=== PATIENT | female | born 1965 | race Caucasian/White ===

== ENCOUNTER 2020-01-15 04:54 | Emergency (ER) | payer SELFPAY ==
[~2020-01-15] VITALS: Ht 127 cm; Wt 65.4 kg
[2020-01-15] MEDS ORDERED: KETOROLAC 15 MG/ML VIAL. IVP ONE (05:15)
[2020-01-15] MEDS ORDERED: METOCLOPRAMIDE HCL 10 MG/2 ML VIAL. IVP ONE (05:15)
[2020-01-15] MEDS ORDERED: IV NORMAL SALINE 1,000ML 1,000 ML IV ONE (05:15)
--- NOTE | 2020-01-15 05:27 | PHYS DOC ---
Past History Past Medical History: Kidney Stones Past Surgical History: No Surgical History Smoking: Non-smoker Alcohol Use: None Drug Use: None General Adult EDM: Chief Complaint: FLANK PAIN HPI: HPI: 54-year-old female presents with report of right flank pain that started at 2300 last night. Reports some associated nausea. Denies trauma. Denies hematuria. Denies fever or chills. Patient reports symptoms similar to prior episodes of kidney stones. Patient reports has been able to pass her kidney stones without difficulty in the past. Denies rash. Denies trauma. Review of Systems: Review of Systems: Constitutional: Denies fever or chills Eyes: Denies redness or eye pain HENT: Denies nasal congestion or sore throat Respiratory: Denies cough or shortness of breath Cardiovascular: Denies chest pain or palpitations GI: Reports abdominal pain, nausea, and vomiting : Denies dysuria or hematuria Musculoskeletal: Reports right-sided flank pain; denies joint pain Integument: Denies rash or skin lesions Neurologic: Denies headache, focal weakness or sensory changes Complete systems were reviewed and found to be within normal limits, except as documented in this note. Current Medications: Current Meds: Current Medications Medications (Trade) Dose Ordered Sig/Naz Start Time Stop Time Status Last Admin Dose Admin Ketorolac Tromethamine (Toradol 15mg Vial) 15 mg 1X ONCE 01/15/20 05:15 01/15/20 05:16 UNV Metoclopramide HCl (Reglan Vial) 10 mg 1X ONCE 01/15/20 05:15 01/15/20 05:16 UNV Sodium Chloride 1,000 ml @ 1,000 mls/hr 1X ONCE 01/15/20 05:15 01/15/20 06:14 UNV Allergies: Allergies: Allergies Coded Allergies Type Severity Reaction Last Updated Verified Penicillins Allergy Unknown 01/15/20 Yes Sulfa (Sulfonamide Antibiotics) Allergy Unknown 01/15/20 Yes Physical Exam: PE: Constitutional: Well developed, well nourished, no acute distress, non-toxic appearance HENT: Normocephalic, atraumatic Eyes: Conjunctiva normal, no discharge Neck: Normal range of motion, supple Lungs & Thorax: No respiratory distress, equal chest rise and fall Abdomen: Soft, no tenderness, no guarding/rebound tenderness/distention Skin: Warm, dry, no erythema, no rash Back: No tenderness, right CVA tenderness Extremities: No tenderness, ROM intact, no edema Neurologic: Alert and oriented X 3, no focal deficits noted Psychologic: Affect normal, judgment normal Current Patient Data: Vital Signs: Vital Signs Date Time Temp Pulse Resp B/P (MAP) Pulse Ox O2 Delivery O2 Flow Rate FiO2 01/15/20 05:00 98.4 76 18 156/99 (118) 96 Room Air EKG: EKG: [] Radiology/Procedures: Radiology/Procedures: PROCEDURE: CT ABDOMEN PELVIS WO CONTRAST CT ABDOMEN PELVIS WO CONTRAST INDICATION: Reason: Severe right flank pain. Hx: Kidney stones / Spl. Instructions: / History: EXAM: Noncontrast CT of the abdomen and pelvis. Coronal and sagittal reformatted images were performed. PQRS compliance statement: One or more of the following individualized dose reduction techniques were utilized for this examination: 1. Automated exposure control 2. Adjustment of the mA and/or kV according to patient size 3. Use of iterative reconstruction technique COMPARISON: None FINDINGS: No free air, free fluid, or fluid collection. Lower chest: The visualized lower lungs are aerated. No pleural or pericardial effusion. ABDOMEN: Liver: The noncontrast liver is homogeneous in attenuation. Gallbladder and biliary: Cholelithiasis. Normal caliber bile ducts. Spleen: Normal spleen. Pancreas: The noncontrast pancreas is homogeneous in attenuation without peripancreatic inflammatory changes. Adrenal glands: Normal adrenal glands. Kidneys and ureters: Mild right hydronephrosis and asymmetric perinephric stranding with a 3 mm calculus at the ureteropelvic junction GI tract: The stomach is decompressed and poorly evaluated. Normal caliber small bowel and colon. Normal appendix. Vascular structures: Normal caliber abdominal aorta. Lymph nodes: No lymphadenopathy in the abdomen or pelvis. PELVIS: Genitourinary system: Urinary bladder is decompressed. Uterus is present. SKELETAL STRUCTURES AND SOFT TISSUES: Degenerative changes of the spine IMPRESSION: Mild right hydronephrosis with a 3 mm calculus at the ureteropelvic junction. Electronically signed by: Jonathan Gutierrez MD (01/15/2020 5:54 AM) [id number] Course & Med Decision Making: Course & Med Decision Making Pertinent Labs and Imaging studies reviewed. (See chart for details) Patient presents with report of right flank pain that started last night. Reports associated nausea. Reports history of kidney stones and reports symptoms similar to prior. Labs obtained and partially pending. WBC elevated. Heme concentrated. CT abdomen/pelvis with obstructing 3mm ureteral calculi. Flomax given. Symptomatic treatment provided. IV fluid hydration given. 0600-signout given to Dr. Hendricks for further evaluation and final disposition. Discussed current findings and plan with patient, who acknowledges understanding and agreement. Frank Disclaimer: Frank Disclaimer: This electronic medical record was generated, in whole or in part, using a voice recognition dictation system. Departure Departure: Impression: Primary Impression: Kidney stone Disposition: HOME/RESIDENCE PRIOR TO ADM Condition: STABLE Referrals: BRAXTON ROSARIO MD (PCP) Patient Instructions: Diet for Kidney Stones, Kidney Stones, Oeeh-ij-Sssz Scripts Hydrocodone Bit/Acetaminophen (NORCO 5-325 TABLET) 1 Each Tablet 0.5-1 TAB PO PRN Q6HRS PRN for PAIN, #10 TAB 0 Refills Prov: JEREMÍAS TRAN DO 01/15/20 Tamsulosin Hcl (FLOMAX) 0.4 Mg Cap.er.24h 1 CAP PO DAILY for Kidney stone, #7 CAP Prov: JEREMÍAS TRAN DO 01/15/20 Ondansetron (ONDANSETRON ODT) 4 Mg Tab.rapdis 1 TAB PO PRN Q6-8HRS PRN for NAUSEA, #16 TAB Prov: JEREMÍAS TRAN DO 01/15/20 Justification of Admission: Justification of Admission: Justification of Admission Dx: N/A JEREMÍAS TRAN DO Jan 15, 2020 05:27
[2020-01-15 05:50] LABS: BASO # 0.2 x10^3/uL (0.0-0.2); BASO % 1 % (0-3); EOS % 0 % (0-3); HEMATOCRIT 51.5 % (36.0-47.0); HEMOGLOBIN 17.6 g/dL (12.0-15.5); LYMPH % 5 % (24-48); MEAN CORPUSCULAR HEMOGLOBIN 32 pg (25-35); MEAN CORPUSCULAR HGB CONC 34 g/dL (31-37); MEAN CORPUSCULAR VOLUME 94 fL (79-100); MONO # 0.7 x10^3/uL (0.0-1.1); MONO % 3 % (0-9); NEUT # 17.3 x10^3uL (1.8-7.7); NEUT % 90 % (31-73); PLATELET COUNT 252 x10^3/uL (140-400); RED BLOOD COUNT 5.48 x10^6/uL (3.50-5.40); RED CELL DISTRIBUTION WIDTH 12.6 % (11.5-14.5); WHITE BLOOD COUNT 19.1 x10^3/uL (4.0-11.0)
--- NOTE | 2020-01-15 05:57 | RAD ---
CT ABDOMEN PELVIS WO CONTRAST INDICATION: Reason: Severe right flank pain. Hx: Kidney stones / Spl. Instructions: / History: EXAM: Noncontrast CT of the abdomen and pelvis. Coronal and sagittal reformatted images were performed. PQRS compliance statement: One or more of the following individualized dose reduction techniques were utilized for this examination: 1. Automated exposure control 2. Adjustment of the mA and/or kV according to patient size 3. Use of iterative reconstruction technique COMPARISON: None FINDINGS: No free air, free fluid, or fluid collection. Lower chest: The visualized lower lungs are aerated. No pleural or pericardial effusion. ABDOMEN: Liver: The noncontrast liver is homogeneous in attenuation. Gallbladder and biliary: Cholelithiasis. Normal caliber bile ducts. Spleen: Normal spleen. Pancreas: The noncontrast pancreas is homogeneous in attenuation without peripancreatic inflammatory changes. Adrenal glands: Normal adrenal glands. Kidneys and ureters: Mild right hydronephrosis and asymmetric perinephric stranding with a 3 mm calculus at the ureteropelvic junction GI tract: The stomach is decompressed and poorly evaluated. Normal caliber small bowel and colon. Normal appendix. Vascular structures: Normal caliber abdominal aorta. Lymph nodes: No lymphadenopathy in the abdomen or pelvis. PELVIS: Genitourinary system: Urinary bladder is decompressed. Uterus is present. SKELETAL STRUCTURES AND SOFT TISSUES: Degenerative changes of the spine IMPRESSION: Mild right hydronephrosis with a 3 mm calculus at the ureteropelvic junction. Electronically signed by: Jonathan Gutierrez MD (01/15/2020 5:54 AM) [id number]
[2020-01-15 05:58] LABS: BACTERIA,URINE FEW /HPF (0-FEW); BILIRUBIN,URINE NEG (NEG); CLARITY,URINE HAZY; COLOR,URINE YELLOW; GLUCOSE,URINE >=1000 mg/dL (NEG); NITRITE,URINE NEG (NEG); RBC,URINE >40 /HPF (0-2); SQUAMOUS EPITHELIAL CELL,UR FEW /LPF; UROBILINOGEN,URINE 0.2 mg/dL (0.2 mg/dL); WBC,URINE OCC /HPF (0-4)
[2020-01-15 05:59] LABS: GFR 57.8; POTASSIUM 3.8 mmol/L (3.5-5.1)
[2020-01-15 06:02] LABS: % BANDS 5 % (0-9); % LYMPHS 9 % (24-48); % MONOS 4 % (0-10); % SEGS 82 % (35-66); PLT ESTIMATE ADEQUATE (ADEQUATE)
[2020-01-15 06:05] LABS: ALBUMIN 3.6 g/dL (3.4-5.0); MAGNESIUM 1.8 mg/dL (1.8-2.4); TOTAL BILIRUBIN 0.6 mg/dL (0.2-1.0); TOTAL PROTEIN 7.2 g/dL (6.4-8.2)
[2020-01-15] MEDS ORDERED: TAMS0.4C97 PO (06:14)
[2020-01-15] MEDS ORDERED: HYDR-3165 PO (06:14)
[2020-01-15] MEDS ORDERED: ONDA4TAB12 PO (06:14)
[2020-01-15] MEDS ORDERED: TAMSULOSIN 0.4 MG CAP.ER.24H. PO ONE (06:15)
[2020-01-15 06:20] VITALS: BP 129/77
== END 2020-01-15 06:25 | disposition home or self-care (01) ==
LOC: ER 04:54
DX: N13.2 Hydronephrosis with renal and ureteral calculous obstruction (principal); R11.2 Nausea with vomiting, unspecified; Z87.442 Personal history of urinary calculi; Z88.0 Allergy status to penicillin; Z88.2 Allergy status to sulfonamides
CPT/HCPCS: 36415; 74176; 80053; 81001; 83690; 83735; 85007; 85025; 96361; 96374; 96375; 99284; J1885; J2765; J7030; 99285-25

== ENCOUNTER 2020-06-09 20:41 | Emergency (ER) | payer OTHER ==
[~2020-06-09] VITALS: Ht 127 cm; Wt 63.9 kg
[~2020-06-09 20:41] MED LIST: HYDR-3165 PO; ONDA4TAB12 PO; TAMS0.4C97 PO
--- NOTE | 2020-06-09 20:43 | PHYS DOC ---
Past History Past Medical History: Kidney Stones, Ovarian Cyst Past Surgical History: No Surgical History Past Surgical History Laparoscopic surgeries Smoking: Non-smoker Alcohol Use: None Drug Use: None General Adult HPI: HPI: '..."I am hurting here on my Rt. flank....It like a kidney stone.. ..it radiates down to my groin.. I ve been vomiting.. ..I was exposed to my dad who has COVID..but I been self isolating since then.. it been 10 days.. I ve not had any COVID symptoms.. just the kidney stone like pain .. I ve had about 5 episodes of kidney stones... This is just like my other kidney stones...." Patient is a 55 year old female who presents with above hx and complaints right flank pain that radiates to her groin. Patient has had some nausea and vomiting.. Patient denies any trauma. Patient denies any history of bad food intake. Patient denies any travel. Was exposed to father who was diagnosed with Covid 10 days ago. Patient has been self isolating. Patient has not had any Covid symptoms. Patient has not had a flu vaccination this season. Patient has had recurrent kidney stones, at least 5 episodes which required medical evaluation. Patient also has had multiple laparoscopic surgeries for ovarian issues and endometriosis. Hx of colitis. Patient normally follows with Dr. Rosario. Review of Systems: Review of Systems: Constitutional: Denies fever or chills Eyes: Denies change in visual acuity HENT: Denies nasal congestion or sore throat Respiratory: Denies cough or shortness of breath Cardiovascular: Denies chest pain or edema GI: Complains of right flank abdominal pain, nausea, vomiting,. Denies bloody stools or diarrhea : Denies dysuria Musculoskeletal: Denies back pain or joint pain Integument: Denies rash Neurologic: Denies headache, focal weakness or sensory changes Endocrine: Denies polyuria or polydipsia Lymphatic: Denies swollen glands Psychiatric: Denies depression or anxiety Family History: Family History: Father recently diagnosed with Covid Current Medications: Current Meds: See nursing for home meds Allergies: Allergies: Allergies Coded Allergies Type Severity Reaction Last Updated Verified Penicillins Allergy Unknown 01/15/20 Yes Sulfa (Sulfonamide Antibiotics) Allergy Unknown 01/15/20 Yes Physical Exam: PE: Constitutional: In moderately acute distress, non-toxic appearance. [] HENT: Normocephalic, atraumatic, bilateral external ears normal, oropharynx dry , no oral exudates, nose normal. [] Eyes: PERRLA, EOMI, conjunctiva normal, no discharge. Glasses Neck: Normal range of motion, no tenderness, supple, no stridor. [] Cardiovascular:Heart rate regular rhythm, no murmur [] Lungs & Thorax: Bilateral breath sounds equal at apex and few bilateral basilar crackles on auscultation [] Abdomen: Bowel sounds decreased, soft, right flank tenderness, no masses, no pulsatile masses. Multiple surgery scars(laparoscopic evaluations and treatment of abdomen pain=-ovarian cyst etc. etc..) Obese. Skin: Warm, dry, no erythema, no rash. [] Back: No tenderness, right flank CVA tenderness. [] Extremities: No tenderness, no cyanosis, no clubbing, ROM intact, no edema. No psoas sign Neurologic: Alert and oriented X 3, normal motor function, normal sensory function, no focal deficits noted. [] Psychologic: Affect anxious, judgement normal, mood normal. [] EKG: EKG: [] Radiology/Procedures: Radiology/Procedures: [place] [address] IMAGING REPORT Signed PATIENT: YOSELIN BENITEZ ACCOUNT: [id number] : 1965 LOCATION: ER AGE: 55 SEX: F EXAM STATUS: REG ER ORD. PHYSICIAN: SHAYNA HIGH MD REASON: Renal stone hx, similar pain, on Rt. PROCEDURE: CT ABDOMEN PELVIS WO CONTRAST Exam: CT abdomen and pelvis without contrast INDICATION: Renal stone, similar pain on right TECHNIQUE: Sequential axial images through the abdomen and pelvis obtained without IV contrast. Sagittal and coronal reformatted images were reconstructed from the axial data and reviewed. Comparisons: None FINDINGS: Heart size is normal. No pericardial effusion. Linear bandlike opacity at lung bases bilaterally. No pleural effusion. Evaluation of solid organs is limited secondary to noncontrast technique. Liver, spleen, pancreas, gallbladder and adrenals are unremarkable. There is moderate right-sided hydronephrosis with a 9 mm calculus at the right uteropelvic junction. Additionally there is a nonobstructing renal calculus at the right renal pelvis and Several at the lower pole of the right kidney. Bladder is decompressed not well evaluated. Uterus is not enlarged. No abnormal adnexal mass. Submucosal fat deposition noted throughout the colon. Appendix is nonidentified. No free intra-abdominal air or fluid. No obstruction. Abdominal aorta has a normal course and caliber. No enlarged abdominal lymph nodes are identified. No suspicious osseous lesions or acute fractures. IMPRESSION: 1. A 9 mm calculus at the right ureteral pelvic junction with moderate right-sided hydronephrosis. 2. Several nonobstructing right renal calculi. 3. Diffuse of mucosal fat deposition throughout the colon, likely sequela of prior colitis. Exposure: One or more of the following in the visualized dose reduction techniques were utilized for this examination: 1. Automated exposure control 2. Adjustment of the MA and/or KV according to patient size 3. Use of iterative of reconstructive technique Electronically signed by: Mary Lima MD (06/09/2020 10:09 PM) [facility] DICTATED AND SIGNED BY: MARY LIMA MD DATE: 06/09/202208 CC: SHAYNA HIGH MD; BRAXTON ROSAIRO MD ~MTH0 0 [][address] [address] IMAGING REPORT Signed PATIENT: YOSELIN BENITEZ ACCOUNT: [id number] : 1965 LOCATION: ER AGE: 55 SEX: F EXAM STATUS: PRE ER ORD. PHYSICIAN: SHAYNA HIGH MD REASON: abd. pain, nausea, vomiting, sick , Exp. COVID 10 DAYS AGO PROCEDURE: ACUTE ABDOMEN SERIES Exam: Acute abdominal series INDICATION: Abdominal pain, nausea and vomiting TECHNIQUE: Frontal view of the chest with upright and supine views of the abdomen Comparisons: None FINDINGS: The cardiomediastinal silhouette and pulmonary vessels are within normal limits. Strandy opacities at dependent portion lungs likely representing atelectasis. No pleural effusion. Air and stool are noted throughout the colon to level the rectum in a nonobstructive bowel gas pattern. No suspicious masses or calcifications. Visualized osseous structures are unremarkable. IMPRESSION: 1. Bibasilar strandy opacities likely representing atelectasis. 2. Nonobstructive bowel gas pattern. Electronically signed by: Mary Lmia MD (06/09/2020 9:30 PM) [facility] DICTATED AND SIGNED BY: MARY LIMA MD DATE: 06/09/202129 CC: SHAYNA HIGH MD; BRAXTON ROSARIO MD ~MTH0 0 Heart Score: Risk Factors: Risk Factors: DM, Current or recent (<one month) smoker, HTN, HLP, family history of CAD, obesity. Risk Scores: Score 0 - 3: 2.5% MACE over next 6 weeks - Discharge Home Score 4 - 6: 20.3% MACE over next 6 weeks - Admit for Clinical Observation Score 7 - 10: 72.7% MACE over next 6 weeks - Early Invasive Strategies Course & Med Decision Making: Course & Med Decision Making Pertinent Labs and Imaging studies reviewed. (See chart for details) Patient push fluids. Tylenol and ibuprofen as needed for pain. Marked pain may take a Vicoprofen up to 4 times a day .. Take Zofran 8 mg up to 4 times a day for active nausea and vomiting. Follow-up with primary care. Consider follow- up with urology. Save stone if passed. Discussed presentation, testing and tx. plan with pt. Pt.to follow with her dad's urologist or call Dr.Bradley Brooke Hardy [phone] in the AM for follow up apt. Take Keflex 500 three times a day . Take Flomax daily. Push flui ds...this is a must. Clear fluid diet for now. Followup urine cultures. Impression: 1. Nausea and vomiting 2. Right flank renal colic gzjy-[id number]-3 mm stone right ureteral pelvic junction 3. Leukocytosis 19.1 4. Elevated hemoglobin 16.8 5. Diabetes glucose 228 6. Hematuria 7. Dehydration [] Dragon Disclaimer: Dragon Disclaimer: This electronic medical record was generated, in whole or in part, using a voice recognition dictation system. Departure Departure: Referrals: BRAXTON ROSARIO MD (PCP) Scripts Tamsulosin Hcl (FLOMAX) 0.4 Mg Cap.er.24h 0.4 MG PO HS for kidney stone, #30 CAP.SR Prov: SHAYNA HIGH MD 06/09/20 Cephalexin (KEFLEX) 500 Mg Capsule 500 MG PO TID for hematuria for 7 Days, B Prov: SHAYNA HIGH MD 06/09/20 Ondansetron Hcl (ZOFRAN) 4 Mg Tablet 8 MG PO QIDPRN PRN for NAUSEA/VOMITING, #30 TAB Prov: SHAYNA HIGH MD 06/09/20 Hydrocodone/Ibuprofen (HYDROCODONE-IBUPROFEN 7.5-200 ) 1 Each Tablet 1 TAB PO PRN Q6HRS PRN for PAIN, #30 TAB 0 Refills Prov: SHAYNA HIGH MD 06/09/20 Dragon Disclaimer This chart was dictated in whole or in part using Voice Recognition software in a busy, high-work load, and often noisy Emergency Department environment. It may contain unintended and wholly unrecognized errors or omissions. Dragon Disclaimer This chart was dictated in whole or in part using Voice Recognition software in a busy, high-work load, and often noisy Emergency Department environment. It may contain unintended and wholly unrecognized errors or omissions. SHAYNA HIGH MD Jun 09, 2020 20:43
[2020-06-09] MEDS ORDERED: IV RINGERS SOLUTION,LACTATED 1,000 ML IV SCH (21:00)
[2020-06-09] MEDS ORDERED: FAMOTIDINE 20 MG/2 ML VIAL IVP ONE (21:00)
[2020-06-09] MEDS ORDERED: ONDANSETRON PF 4 MG/2 ML VIAL. IVP ONE (21:00)
[2020-06-09] MEDS ORDERED: KETOROLAC 30 MG/ML VIAL. IVP ONE (21:00)
[2020-06-09 21:20] LABS: BARBITURATES NEG (NEG); BENZODIAZEPINES NEG (NEG); CANNABINOIDS NEG (NEG); COCAINE NEG (NEG); METHADONE NEG (NEG); OPIATES POS (NEG); PHENCYCLIDINE NEG (NEG)
[2020-06-09 21:22] LABS: AMPHETAMINE/METHAMPHETAMINE NEG (NEG)
[2020-06-09 21:27] LABS: CLARITY,URINE CLOUDY; COLOR,URINE YELLOW
[2020-06-09 21:28] LABS: BACTERIA,URINE FEW /HPF (0-FEW); BILIRUBIN,URINE NEG (NEG); GLUCOSE,URINE >=1000 mg/dL (NEG); NITRITE,URINE NEG (NEG); RBC,URINE >40 /HPF (0-2); SQUAMOUS EPITHELIAL CELL,UR MOD /LPF; UROBILINOGEN,URINE 0.2 mg/dL (0.2 mg/dL)
--- NOTE | 2020-06-09 21:33 | RAD ---
Exam: Acute abdominal series INDICATION: Abdominal pain, nausea and vomiting TECHNIQUE: Frontal view of the chest with upright and supine views of the abdomen Comparisons: None FINDINGS: The cardiomediastinal silhouette and pulmonary vessels are within normal limits. Strandy opacities at dependent portion lungs likely representing atelectasis. No pleural effusion. Air and stool are noted throughout the colon to level the rectum in a nonobstructive bowel gas pattern. No suspicious masses or calcifications. Visualized osseous structures are unremarkable. IMPRESSION: 1. Bibasilar strandy opacities likely representing atelectasis. 2. Nonobstructive bowel gas pattern. Electronically signed by: Mary Gar MD (06/09/2020 9:30 PM) [facility]
[2020-06-09 21:45] LABS: BASO # 0.1 x10^3/uL (0.0-0.2); BASO % 0 % (0-3); EOS % 0 % (0-3); HEMATOCRIT 50.6 % (36.0-47.0); HEMOGLOBIN 16.8 g/dL (12.0-15.5); LYMPH # 0.8 x10^3/uL (1.0-4.8); LYMPH % 4 % (24-48); MEAN CORPUSCULAR HEMOGLOBIN 31 pg (25-35); MEAN CORPUSCULAR HGB CONC 33 g/dL (31-37); MEAN CORPUSCULAR VOLUME 94 fL (79-100); MONO # 0.8 x10^3/uL (0.0-1.1); MONO % 4 % (0-9); NEUT # 17.4 x10^3uL (1.8-7.7); NEUT % 91 % (31-73); PLATELET COUNT 295 x10^3/uL (140-400); RED BLOOD COUNT 5.39 x10^6/uL (3.50-5.40); RED CELL DISTRIBUTION WIDTH 12.7 % (11.5-14.5); WHITE BLOOD COUNT 19.1 x10^3/uL (4.0-11.0)
[2020-06-09 21:48] LABS: CALCIUM 8.8 mg/dL (8.5-10.1); GFR 57.6
[2020-06-09 21:54] LABS: ALBUMIN 3.6 g/dL (3.4-5.0); DIRECT BILIRUBIN 0.2 mg/dL (0.0-0.2); TOTAL BILIRUBIN 0.6 mg/dL (0.2-1.0); TOTAL PROTEIN 7.2 g/dL (6.4-8.2)
[2020-06-09] MEDS ORDERED: ONDA4TAB7 PO (22:02)
[2020-06-09] MEDS ORDERED: HYDR-1179 PO (22:02)
[2020-06-09 22:10] LABS: % BANDS 1 % (0-9); % LYMPHS 2 % (24-48); % MONOS 6 % (0-10); % SEGS 91 % (35-66)
[2020-06-09 22:11] LABS: PLT ESTIMATE ADEQUATE (ADEQUATE)
--- NOTE | 2020-06-09 22:19 | RAD ---
Exam: CT abdomen and pelvis without contrast INDICATION: Renal stone, similar pain on right TECHNIQUE: Sequential axial images through the abdomen and pelvis obtained without IV contrast. Sagittal and coronal reformatted images were reconstructed from the axial data and reviewed. Comparisons: None FINDINGS: Heart size is normal. No pericardial effusion. Linear bandlike opacity at lung bases bilaterally. No pleural effusion. Evaluation of solid organs is limited secondary to noncontrast technique. Liver, spleen, pancreas, gallbladder and adrenals are unremarkable. There is moderate right-sided hydronephrosis with a 9 mm calculus at the right uteropelvic junction. Additionally there is a nonobstructing renal calculus at the right renal pelvis and Several at the lower pole of the right kidney. Bladder is decompressed not well evaluated. Uterus is not enlarged. No abnormal adnexal mass. Submucosal fat deposition noted throughout the colon. Appendix is nonidentified. No free intra-abdominal air or fluid. No obstruction. Abdominal aorta has a normal course and caliber. No enlarged abdominal lymph nodes are identified. No suspicious osseous lesions or acute fractures. IMPRESSION: 1. A 9 mm calculus at the right ureteral pelvic junction with moderate right-sided hydronephrosis. 2. Several nonobstructing right renal calculi. 3. Diffuse of mucosal fat deposition throughout the colon, likely sequela of prior colitis. Exposure: One or more of the following in the visualized dose reduction techniques were utilized for this examination: 1. Automated exposure control 2. Adjustment of the MA and/or KV according to patient size 3. Use of iterative of reconstructive technique Electronically signed by: Mary Gar MD (06/09/2020 10:09 PM) [facility]
[2020-06-09] MEDS ORDERED: cefTRIAXone SODIUM 1 GM VIAL ONE (22:36)
[2020-06-09] MEDS ORDERED: IV NORMAL SALINE 50ML 50 ML ONE (22:36)
[2020-06-09] MEDS ORDERED: TAMS0.4C97 PO (22:48)
[2020-06-09] MEDS ORDERED: CEPH-264 PO (22:48)
[2020-06-09 22:56] VITALS: BP 132/85
[2020-06-09] MEDS ORDERED: TAMSULOSIN 0.4 MG CAP.ER.24H. PO ONE (23:00)
== END 2020-06-09 23:20 | disposition home or self-care (01) ==
LOC: ER 20:41
DX: N13.2 Hydronephrosis with renal and ureteral calculous obstruction (principal); R11.2 Nausea with vomiting, unspecified; D72.829 Elevated white blood cell count, unspecified; R31.9 Hematuria, unspecified; E86.0 Dehydration; D58.2 Other hemoglobinopathies; E11.9 Type 2 diabetes mellitus without complications; Z87.442 Personal history of urinary calculi; Z88.0 Allergy status to penicillin; Z88.2 Allergy status to sulfonamides
CPT/HCPCS: 36415; 74022; 74176; 80048; 80076; 80307; 81001; 82150; 82550; 83690; 85007; 85025; 85610; 85730; 96361; 96365; 96375; 99285; J0696; J1885; J2405; J3490; J7120

== ENCOUNTER → 2020-08-01 | Outpatient (CLI) | payer BC, OTHER ==
[~2020-08-01] MED LIST changes: +CEPH-264 PO; +HYDR-1179 PO; +ONDA4TAB7 PO
[2020-08-01 18:54] LABS: BASO # 0.1 x10^3/uL (0.0-0.2); BASO % 0 % (0-3); EOS # 0.1 x10^3/uL (0.0-0.7); EOS % 1 % (0-3); HEMATOCRIT 49.3 % (36.0-47.0); HEMOGLOBIN 16.6 g/dL (12.0-15.5); LYMPH # 1.9 x10^3/uL (1.0-4.8); LYMPH % 12 % (24-48); MEAN CORPUSCULAR HEMOGLOBIN 31 pg (25-35); MEAN CORPUSCULAR HGB CONC 34 g/dL (31-37); MEAN CORPUSCULAR VOLUME 93 fL (79-100); MONO % 6 % (0-9); NEUT # 12.3 x10^3uL (1.8-7.7); NEUT % 80 % (31-73); PLATELET COUNT 300 x10^3/uL (140-400); RED BLOOD COUNT 5.29 x10^6/uL (3.50-5.40); WHITE BLOOD COUNT 15.3 x10^3/uL (4.0-11.0)
[2020-08-01 19:11] LABS: CLARITY,URINE CLEAR; COLOR,URINE STRAW
[2020-08-01 19:12] LABS: BACTERIA,URINE FEW /HPF (0-FEW); BILIRUBIN,URINE NEG (NEG); GLUCOSE,URINE >=1000 mg/dL (NEG); NITRITE,URINE NEG (NEG); UROBILINOGEN,URINE 0.2 mg/dL (0.2 mg/dL)
[2020-08-01 19:13] LABS: SQUAMOUS EPITHELIAL CELL,UR MOD /LPF
[2020-08-01 19:16] LABS: ALBUMIN 3.3 g/dL (3.4-5.0); ALBUMIN/GLOBULIN RATIO 0.9 (1.0-1.7); CALCIUM 9.2 mg/dL (8.5-10.1); CREATININE 0.8 mg/dL (0.6-1.0); GFR 74.5; POTASSIUM 3.5 mmol/L (3.5-5.1); TOTAL BILIRUBIN 0.5 mg/dL (0.2-1.0); TOTAL PROTEIN 7.1 g/dL (6.4-8.2); URIC ACID 3.8 mg/dL (2.6-6.0)
[2020-08-01 19:35] LABS: % EOS 1 % (0-5); % LYMPHS 9 % (24-48); % MONOS 7 % (0-10); % SEGS 83 % (35-66)
[2020-08-01 19:36] LABS: PLT ESTIMATE ADEQUATE (ADEQUATE)
[2020-08-02 15:11] LABS: FREE T4 1.01 ng/dL (0.76-1.46); THYROID STIM HORMONE (TSH) 3.246 uIU/mL (0.358-3.740)
== END ==
LOC: LAB 17:56
PROVIDERS: ATTEND Family Medicine
DX: N20.0 Calculus of kidney (principal); E55.9 Vitamin D deficiency, unspecified; E78.00 Pure hypercholesterolemia, unspecified; R53.83 Other fatigue; Z80.3 Family history of malignant neoplasm of breast
CPT/HCPCS: 36415; 80053; 80061; 81001; 84439; 84443; 84550; 85007; 85025

== ENCOUNTER → 2020-08-05 | Outpatient (CLI) | payer BC ==
[2020-08-06 01:26] LABS: HEMOGLOBIN A1C 8.8 % (4.8-5.6)
== END ==
LOC: LAB 11:51
PROVIDERS: ATTEND Family Medicine
DX: E11.8 Type 2 diabetes mellitus with unspecified complications (principal)
CPT/HCPCS: 36415; 83036

== ENCOUNTER → 2020-08-10 | Outpatient (CLI) | payer BC, OTHER ==
--- NOTE | 2020-08-11 10:06 | RAD ---
DATE: 08/10/2020 11:46 AM EXAM: DIGITAL SCREEN BILAT W/CAD HISTORY: Screening COMPARISON: 04/12/2012 Bilateral full field craniocaudal and mediolateral oblique images were obtained using digital technique. This study was interpreted with the benefit of Computerized Aided Detection (CAD). FINDINGS: Breast Density: FATTY The Breast Parenchyma is primarily fatty replaced. Breast parenchyma level density A. No suspicious masses, microcalcifications or architectural distortion is present to suggest malignancy in either breast. The visualized axillae are unremarkable. IMPRESSION: No mammographic evidence of malignancy. BI-RADS CATEGORY: 1 NEGATIVE RECOMMENDED FOLLOW-UP: 12M 12 MONTH FOLLOW-UP Annual screening mammography is recommended, unless clinically indicated sooner based on symptoms or change in physical exam. PQRS compliance statement: Patient information was entered into a reminder system with a target due date for the next mammogram. Mammography is a sensitive method for finding small breast cancers, but it does not detect them all and is not a substitute for careful clinical examination. A negative mammogram does not negate a clinically suspicious finding and should not result in delay in biopsying a clinically suspicious abnormality. "Our facility is accredited by the [employer] Mammography Program."
== END ==
LOC: MAMMO 11:11
PROVIDERS: ATTEND Family Medicine
DX: Z12.31 Encounter for screening mammogram for malignant neoplasm of breast (principal)
CPT/HCPCS: 77067

== ENCOUNTER → 2020-10-24 | Outpatient (CLI) | payer BC ==
[2020-10-24 11:57] LABS: ALBUMIN 3.6 g/dL (3.4-5.0); CALCIUM 9.5 mg/dL (8.5-10.1); CREATININE 0.7 mg/dL (0.6-1.0); GFR 86.9; POTASSIUM 4.2 mmol/L (3.5-5.1); TOTAL BILIRUBIN 0.5 mg/dL (0.2-1.0); TOTAL PROTEIN 7.2 g/dL (6.4-8.2)
[2020-10-25 01:11] LABS: HEMOGLOBIN A1C 6.8 % (4.8-5.6)
== END ==
LOC: LAB 10:16
PROVIDERS: ATTEND Family Medicine
DX: N20.0 Calculus of kidney (principal); E11.8 Type 2 diabetes mellitus with unspecified complications; E78.5 Hyperlipidemia, unspecified
CPT/HCPCS: 36415; 80053; 80061; 83036

== ENCOUNTER → 2021-03-20 | Outpatient (CLI) | payer OTHER ==
[2021-03-20 12:46] LABS: BASO # 0.1 x10^3/uL (0.0-0.2); BASO % 1 % (0-3); EOS # 0.1 x10^3/uL (0.0-0.7); EOS % 1 % (0-3); HEMATOCRIT 43.8 % (36.0-47.0); HEMOGLOBIN 14.8 g/dL (12.0-15.5); LYMPH # 2.2 x10^3/uL (1.0-4.8); LYMPH % 15 % (24-48); MEAN CORPUSCULAR HEMOGLOBIN 32 pg (25-35); MEAN CORPUSCULAR HGB CONC 34 g/dL (31-37); MEAN CORPUSCULAR VOLUME 95 fL (79-100); MONO # 0.9 x10^3/uL (0.0-1.1); MONO % 6 % (0-9); NEUT # 11.5 x10^3uL (1.8-7.7); NEUT % 78 % (31-73); PLATELET COUNT 254 x10^3/uL (140-400); RED BLOOD COUNT 4.63 x10^6/uL (3.50-5.40); RED CELL DISTRIBUTION WIDTH 12.5 % (11.5-14.5); WHITE BLOOD COUNT 14.8 x10^3/uL (4.0-11.0)
[2021-03-20 12:51] LABS: ALBUMIN 3.5 g/dL (3.4-5.0); ALBUMIN/GLOBULIN RATIO 1.2 (1.0-1.7); CREATININE 0.6 mg/dL (0.6-1.0); GFR 103.4; POTASSIUM 3.8 mmol/L (3.5-5.1); TOTAL BILIRUBIN 0.4 mg/dL (0.2-1.0); TOTAL PROTEIN 6.5 g/dL (6.4-8.2)
[2021-03-20 14:16] LABS: BACTERIA,URINE MOD /HPF (0-FEW); BILIRUBIN,URINE NEG (NEG); CLARITY,URINE HAZY; COLOR,URINE YELLOW; GLUCOSE,URINE NEG (NEG); NITRITE,URINE NEG (NEG); RBC,URINE OCC /HPF (0-2); SQUAMOUS EPITHELIAL CELL,UR MANY /LPF; UROBILINOGEN,URINE 0.2 mg/dL (0.2 mg/dL)
[2021-03-21 01:11] LABS: HEMOGLOBIN A1C 6.7 % (4.8-5.6)
== END ==
LOC: LAB 10:51
PROVIDERS: ATTEND Family Medicine
DX: I10 Essential (primary) hypertension (principal); E78.00 Pure hypercholesterolemia, unspecified; Z79.4 Long term (current) use of insulin
CPT/HCPCS: 36415; 80053; 80061; 81001; 83036; 85025; 87086

== ENCOUNTER → 2021-04-26 | Outpatient (CLI) | payer OTHER ==
[2021-04-26 10:57] LABS: BASO # 0.1 x10^3/uL (0.0-0.2); BASO % 1 % (0-3); EOS # 0.1 x10^3/uL (0.0-0.7); EOS % 1 % (0-3); HEMOGLOBIN 15.6 g/dL (12.0-15.5); LYMPH # 2.6 x10^3/uL (1.0-4.8); LYMPH % 19 % (24-48); MEAN CORPUSCULAR HEMOGLOBIN 32 pg (25-35); MEAN CORPUSCULAR HGB CONC 33 g/dL (31-37); MEAN CORPUSCULAR VOLUME 96 fL (79-100); MONO # 0.8 x10^3/uL (0.0-1.1); MONO % 6 % (0-9); NEUT # 9.9 x10^3uL (1.8-7.7); NEUT % 74 % (31-73); PLATELET COUNT 303 x10^3/uL (140-400); RED BLOOD COUNT 4.91 x10^6/uL (3.50-5.40); RED CELL DISTRIBUTION WIDTH 12.8 % (11.5-14.5); WHITE BLOOD COUNT 13.4 x10^3/uL (4.0-11.0)
[2021-04-26 13:06] LABS: SEDIMENTATION RATE 8 (0-25)
[2021-04-26 14:31] LABS: BILIRUBIN,URINE NEG (NEG); CLARITY,URINE CLEAR; COLOR,URINE YELLOW; GLUCOSE,URINE NEG (NEG); NITRITE,URINE NEG (NEG); UROBILINOGEN,URINE 0.2 mg/dL (0.2 mg/dL)
[2021-04-26 14:32] LABS: BACTERIA,URINE FEW /HPF (0-FEW); SQUAMOUS EPITHELIAL CELL,UR MANY /LPF
== END ==
LOC: LAB 09:34
PROVIDERS: ATTEND Family Medicine
DX: E11.9 Type 2 diabetes mellitus without complications (principal); D72.829 Elevated white blood cell count, unspecified; Z87.442 Personal history of urinary calculi
CPT/HCPCS: 36415; 81001; 85025; 85651; 86140; 87086

== ENCOUNTER → 2021-07-04 | Outpatient (CLI) | payer OTHER ==
[2021-07-04 16:15] LABS: BASO # 0.1 x10^3/uL (0.0-0.2); BASO % 0 % (0-3); EOS # 0.1 x10^3/uL (0.0-0.7); EOS % 1 % (0-3); HEMATOCRIT 45.3 % (36.0-47.0); HEMOGLOBIN 15.1 g/dL (12.0-15.5); LYMPH # 2.4 x10^3/uL (1.0-4.8); LYMPH % 13 % (24-48); MEAN CORPUSCULAR HEMOGLOBIN 32 pg (25-35); MEAN CORPUSCULAR HGB CONC 33 g/dL (31-37); MEAN CORPUSCULAR VOLUME 95 fL (79-100); MONO # 1.2 x10^3/uL (0.0-1.1); MONO % 6 % (0-9); NEUT # 14.5 x10^3uL (1.8-7.7); NEUT % 80 % (31-73); PLATELET COUNT 304 x10^3/uL (140-400); RED BLOOD COUNT 4.77 x10^6/uL (3.50-5.40); RED CELL DISTRIBUTION WIDTH 12.8 % (11.5-14.5); WHITE BLOOD COUNT 18.2 x10^3/uL (4.0-11.0)
[2021-07-04 16:29] LABS: ALBUMIN 3.6 g/dL (3.4-5.0); ALBUMIN/GLOBULIN RATIO 1.2 (1.0-1.7); CALCIUM 8.4 mg/dL (8.5-10.1); CREATININE 0.8 mg/dL (0.6-1.0); GFR 74.2; POTASSIUM 3.8 mmol/L (3.5-5.1); TOTAL BILIRUBIN 0.2 mg/dL (0.2-1.0); TOTAL PROTEIN 6.5 g/dL (6.4-8.2)
[2021-07-04 16:44] LABS: BILIRUBIN,URINE NEG (NEG); CLARITY,URINE HAZY; COLOR,URINE YELLOW; GLUCOSE,URINE NEG (NEG); NITRITE,URINE NEG (NEG); UROBILINOGEN,URINE 0.2 mg/dL (0.2 mg/dL)
[2021-07-04 16:45] LABS: BACTERIA,URINE FEW /HPF (0-FEW); SQUAMOUS EPITHELIAL CELL,UR MANY /LPF
[2021-07-04 18:06] LABS: % ATYL 4 % (0-0); % BANDS 2 % (0-9); % LYMPHS 12 % (24-48); % MONOS 5 % (0-10); % SEGS 77 % (35-66)
[2021-07-04 18:07] LABS: PLT ESTIMATE ADEQUATE (ADEQUATE)
[2021-07-05 00:25] LABS: HEMOGLOBIN A1C 6.4 % (4.8-5.6)
== END ==
LOC: LAB 15:12
PROVIDERS: ATTEND Family Medicine
DX: I10 Essential (primary) hypertension (principal); E78.00 Pure hypercholesterolemia, unspecified; D72.829 Elevated white blood cell count, unspecified; E11.9 Type 2 diabetes mellitus without complications; Z87.442 Personal history of urinary calculi
CPT/HCPCS: 36415; 80053; 81001; 83036; 85007; 85025; 87086

== ENCOUNTER → 2021-10-23 | Outpatient (CLI) | payer OTHER ==
--- NOTE | 2021-10-23 16:26 | RAD ---
BILATERAL SCREENING MAMMOGRAM History: Routine screening. Comparison: Most recently on 08/10/2020. Technique: Routine 2D digital mammogram views were obtained bilaterally. Interpretation was assisted with the use of computer-aided detection. Findings: Breast Tissue Density A : The breasts are almost entirely fatty. There are no dominant masses, suspicious microcalcifications, or architectural distortion. IMPRESSION: No mammographic evidence of malignancy. Recommend routine screening mammography in one year. BI-RADS category 1: Negative. Patient information is entered into the reminder system with a target due date for the next screening mammogram. "Our facility is accredited by the [employer] Mammography Program." Electronically signed by: JANICE KOHLI MD (10/23/2021 4:23 PM) [id number]
== END ==
LOC: MAMMO 15:00
PROVIDERS: ATTEND Family Medicine
DX: Z12.31 Encounter for screening mammogram for malignant neoplasm of breast (principal)
CPT/HCPCS: 77067